=== PATIENT | male | born 1945 | race Caucasian/White ===

== ENCOUNTER 2019-06-17 06:59 | Day surgery (SDC) | payer MEDICARE ==
[2019-06-14 13:59] VITALS: BMI 24.4
[2019-06-17 07:43] VITALS: BP 126/85; TEMP 97.5
--- NOTE | 2019-06-17 09:58 | CT ---
POSTMYELOGRAM LUMBAR SPINE CT: COMPARISON: 05/09/2013. HISTORY: Low back pain. TECHNIQUE: Postmyelogram lumbar spine CT is performed in the axial plane. Reformatted images are submitted for i nterpretation. FINDINGS: Five lumbar type vertebrae. Lumbar spine vertebral body height is maintained. No fracture. 5.8 mm of anterolisthesis of L4 upon L5 and 4.2 mm of retrolisthesis of L5 upon S1. There are bilateral transpedicular screws at L4 and L5, without perihardware lucency. 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 A dorsal column stimulating device is redemonstrated. Symmetric attenuation of the paraspinal muscles. Visualized solid organs are grossly unremarkable. Normal caliber aorta is noted. Visualized sacrum is unremarkable. Conus medullaris terminates at the T12-L1 disc space level. T10-T11, T11-T12 and T12-L1: No significant central canal stenosis or significant neural foraminal na rrowing. L1-L2: No significant central canal stenosis. Moderate to severe right and moderate left foraminal na rrowing. L1-2-L3: No significant central canal stenosis. Mild bilateral foraminal narrowing. L3-L4: Broad-based disc bulge, and facet hypertrophy result in a moderate central canal stenosis. The degree of central canal stenosis has not significant change when compared to the previous examination. Moderate to severe right and moderate to severe left foraminal narrowing. L4-L5: No high-grade central canal stenosis. Bilaterally, neural foramina are mildly narrowed. L5-S1: No significant central canal stenosis. Mild bilateral facet hypertrophy. Right neural foramen is patent. Mild left foraminal narrowing. IMPRESSION: 1. Stable lumbar fusion with stable spondylolisthesis/spondylolysis as described above. 2. Degenerative changes lumbar spine as described above. There is stable moderate central canal steno sis at L3-L4. Transcribed Date/Time: 06/17/2019 10:07 AM
--- NOTE | 2019-06-17 10:10 | RAD ---
Myelogram of Lumbar spine CLINICAL HISTORY: Pain PROCEDURE: Informed consent was obtained. [employer]visor imaging was performed. Patient was placed in a prone position and the skin of the low back was prepped and draped in a standard sterile fashion. Topical anesthesia was achieved with buffered 1% lidocaine. 22-gauge spinal needle was then advanced uneventf ully into the thecal sac from a posterior para midline approach at the left L2-3 level. 9 cc of radiopaque contrast was instilled under low pressure into the thecal sac, upon return of clear colorl ess CSF the needle hub. Imaging was stored for documentation. Needle was removed. Patient tolerated the procedure well, without complication evident. Patient was then transferred to CT to undergo subsequent CT myelogram imaging. Reference separate boone [email or web address]) for additional details. FINDINGS: Intraoperative imaging reveals a needle overlying the lumbar spinal canal, with subsequent instillation of radiopaque contrast within the thecal sac. Fluoroscopy data:0.2minutes, 192 mcg/sq m IMPRESSION: Technically successful myelogram, as above.
[2019-06-17] MEDS ORDERED: Iopamidol-M 200 41% 20 ML VIAL ONE (17:11)
== END 2019-06-17 09:40 | disposition home or self-care (01) ==
LOC: RAD 06:59
PROVIDERS: ATTEND Neurological Surgery
PROC: B02B1ZZ Computerized Tomography (CT Scan) of Spinal Cord using Low Osmolar Contrast (ICD-10-PCS; principal; 2019-06-17)
DX: M48.061 Spinal stenosis, lumbar region without neurogenic claudication (principal); M51.26 Other intervertebral disc displacement, lumbar region; M47.816 Spondylosis without myelopathy or radiculopathy, lumbar region; Z79.899 Other long term (current) drug therapy; Z98.1 Arthrodesis status
CPT/HCPCS: 62304; 72132; Q9966